=== PATIENT | male | born 1995 | race Caucasian/White ===

== ENCOUNTER → 2024-11-12 | Outpatient (CLI) | payer BC ==
[~2024-11-12] MED LIST: ERYT.5TO RIGHTEYE; OLOP.1OPSO OU; OTC ALLERGY MED; PRED20 PO
== END ==
LOC: LAB SHORT 14:40 → LAB 14:40
DX: R21 Rash and other nonspecific skin eruption (principal)
CPT/HCPCS: 88305; 88312; 88313